=== PATIENT | male | born 1950 | race Caucasian/White ===

== ENCOUNTER 2021-08-01 12:01 | Emergency (ER) | payer MEDICARE ==
[2021-08-01 12:51] LABS: RED BLOOD COUNT 4.95 M/UL (4.20-5.50); WHITE BLOOD COUNT 14.6 K/UL (4.5-11.0)
[2021-08-01 13:10] LABS: BUN/CREATININE RATIO 16 (0-10)
[2021-08-01] MEDS ORDERED: CEFUROXIME500 MG PO (16:08)
== END 2021-08-01 16:50 | disposition home or self-care (01) ==
LOC: ER1 12:01
PROVIDERS: Nurse Practitioner
DX: N39.0 Urinary tract infection, site not specified (principal); F17.210 Nicotine dependence, cigarettes, uncomplicated
CPT/HCPCS: 80053; 81001; 85025; 87077; 87086; 87186; 96374; 99283; J0696